=== PATIENT | female | born 1965 | race Caucasian/White ===

== ENCOUNTER → 2017-08-17 | Outpatient (CLI) | payer BC ==
[2016-07-23 12:52] VITALS: BP 125/67
[~2017-08-17] MED LIST: DOXY25TA42 PO; IBUP200C9 PO; LISI-338 PO
--- NOTE | 2017-08-17 13:37 | KCIC ---
MRI Lumbar Spine without contrast History: Low back pain with left radiculopathy, pain for a few weeks starting after moving furniture Technique: Multiplanar, multi sequential noncontrast MR imaging was performed of the lumbar spine. Contrast: None Comparison: None Findings: There is mild motion degradation. Lumbar vertebral body stature and AP alignment are adequate. There is moderate degenerative disc disease greater on the right at L4-5, minimally at L5-S1. Conus terminates normally at the superior aspect of L1. Trace L4-5 endplate edema is likely reactive/degenerative in etiology. There is very mild S-shaped curvature. L2-L3: Spinal canal and neural foramina are adequate. There is mild facet hypertrophic change. L3-L4: There is moderate facet degenerative change and mild buckling of the ligamentum flavum. Neural foramina are adequate. Spinal canal is overall adequate. L4-L5: There is moderate facet hypertrophic change. There is a minimal disc osteophyte complex. There is [id number] right and mild left lateral recess stenosis. There is [id number] narrowing of the right neural foramen from posteriorly by facet, left neural foramen adequate. L5-S1: There is moderate to severe right and moderate left facet degenerative change. There is a shallow posterior bulge/protrusion, no significant impingement descending S1 nerve roots. Spinal canal is overall adequate. Neural foramina are adequate. Impression: 1. There is mild to moderate narrowing of the right L4-5 neural foramen. There is also mild to moderate right and mild left lateral recess stenosis at L4-5. 2. There is moderate degenerative disc disease at L4-5, minimally at L5-S1. Electronically signed by: Chase Cook MD (08/17/2017 1:33 PM) [id number]
== END | disposition home or self-care (01) ==
LOC: KCIC MRI 12:47
PROVIDERS: ATTEND Physician Assistant
DX: M51.16 Intervertebral disc disorders with radiculopathy, lumbar region (principal); M51.37 Other intervertebral disc degeneration, lumbosacral region
CPT/HCPCS: 72148

== ENCOUNTER 2021-08-27 06:04 | Day surgery (SDC) | payer BC ==
[~2021-08-27] VITALS: Ht 180.3 cm; Wt 95.9 kg
[~2021-08-27 06:04] MED LIST changes: +HYDROmorphone 2 MG/ML VIAL IVP PRN; +IV RINGERS,LACTATED 1000ML 1,000 ML IV SCH; -LISI-338 PO; +LISI5TAB15 PO; +PROCHLORPERAZINE 10 MG/2 ML VIAL. IVP PRN; +fentaNYL PF VIAL 100 MCG/2 ML VIAL IVP PRN
[2021-08-27 06:45] VITALS: BP 143/80
[2021-08-27] MEDS ORDERED: BUPIVACAINE MPF 0.25% 30 ML VIAL. ONE (07:02)
[2021-08-27] MEDS ORDERED: SEVOFLURANE > 120 MINUTES. IH ONE (07:15)
[2021-08-27] MEDS ORDERED: SUCCINYLCHOLINE 200 MG/10 ML VIAL. ONE (07:15)
[2021-08-27] MEDS ORDERED: DEXAMETHASONE SOD PHOS 4 MG/ML VIAL ONE (07:15)
[2021-08-27] MEDS ORDERED: ROCURONIUM 50 MG/5 ML VIAL. ONE ×2 (07:15→10:10)
[2021-08-27] MEDS ORDERED: ONDANSETRON PF 4 MG/2 ML VIAL. ONE (07:15)
[2021-08-27] MEDS ORDERED: LIDOCAINE 2% PF 5 ML VIAL. ONE (07:15)
[2021-08-27] MEDS ORDERED: MIDAZOLAM HCL/PF 2 MG/2 ML VIAL. ONE (07:16)
[2021-08-27] MEDS ORDERED: fentaNYL PF VIAL 100 MCG/2 ML VIAL ONE ×2 (07:16→13:11)
[2021-08-27] MEDS ORDERED: KETAMINE HCL IN NACL, ISO-OSM 50 MG/5 ML SYRINGE ONE (07:27)
--- NOTE | 2021-08-27 07:51 | PDOC1 ---
History and Physical Date of Service: DOS: DATE: 08/27/21 TIME: 07:44 Chief Complaint: Chief Complain: Left ankle fracture History of Present Illness: HPI: 56-year-old female with past medical history of previous left ankle fusion and gastric sleeve surgery, who presents to the outpatient surgery for left ankle fixation. About a week ago patient was at home when she tripped over her kowalski retriever. Patient currently does not experience any pain at this time. Currently denies fevers, cough, chest pain, nausea vomiting, abdominal pain, dysuria or hematuria. Past Medical/Surgical History: PMH/PSH: No significant past medical history. Past surgical history of ankle fusion and gastric sleeve Allergies: Allergies: Coded Allergies: No Known Drug Allergies (Unverified , 08/27/21) Family History: Family History: Diabetes and hypertension in the family Social History: Social History: About a pack per day Current Medications: Current Medications Current Medications Fentanyl Citrate (Fentanyl 2ml Vial) 25 mcg PRN Q5MIN PRN IVP MILD PAIN 1-3; Start 08/27/21 at 06:00; Stop 08/28/21 at 05:59 Fentanyl Citrate (Fentanyl 2ml Vial) 50 mcg PRN Q5MIN PRN IVP MODERATE PAIN 4- 6; Start 08/27/21 at 06:00; Stop 08/28/21 at 05:59 Morphine Sulfate (Morphine Sulfate) 1 mg PRN Q10MIN PRN IVP SEVERE PAIN 7-10; Start 08/27/21 at 06:00; Stop 08/28/21 at 05:59 Ringer's Solution 1,000 ml @ 30 mls/hr Q24H IV Last administered on 08/27/21at 06:53; Start 08/27/21 at 06:00; Stop 08/27/21 at 17:59 Hydromorphone HCl (Dilaudid) 0.5 mg PRN Q10MIN PRN IVP SEVERE PAIN 7-10, 2nd CHOICE; Start 08/27/21 at 06:00; Stop 08/28/21 at 05:59 Prochlorperazine Edisylate (Compazine) 5 mg PACU PRN PRN IVP NAUSEA, MRX1; Start 08/27/21 at 06:00; Stop 08/28/21 at 05:59 Cefazolin Sodium/ Dextrose 50 ml @ 100 mls/hr 1X PREOP PRN IV PRIOR TO PROCEDURE; Start 08/27/21 at 06:00; Stop 08/27/21 at 18:00 Bupivacaine HCl (Sensorcaine Mpf 0.25%) 30 ml STK-MED ONCE .ROUTE ; Start 08/27/21 at 07:02; Stop 08/27/21 at 07:03; Status DC Dexamethasone Sodium Phosphate (Decadron) 4 mg STK-MED ONCE .ROUTE ; Start 08/27/21 at 07:15; Stop 08/27/21 at 07:16; Status DC Lidocaine HCl (Lidocaine Pf 2% Vial) 5 ml STK-MED ONCE .ROUTE ; Start 08/27/21 at 07:15; Stop 08/27/21 at 07:16; Status DC Ondansetron HCl (Zofran) 4 mg STK-MED ONCE .ROUTE ; Start 08/27/21 at 07:15; Stop 08/27/21 at 07:16; Status DC Sevoflurane (Ultane) 90 ml STK-MED ONCE IH ; Start 08/27/21 at 07:15; Stop 08/27/21 at 07:16; Status DC Succinylcholine Chloride (Anectine) 200 mg STK-MED ONCE .ROUTE ; Start 08/27/21 at 07:15; Stop 08/27/21 at 07:16; Status DC Rocuronium [place] (Zemuron) 50 mg STK-MED ONCE .ROUTE ; Start 08/27/21 at 07:15; Stop 08/27/21 at 07:16; Status DC Fentanyl Citrate (Fentanyl 2ml Vial) 100 mcg STK-MED ONCE .ROUTE ; Start 08/27/21 at 07:16; Stop 08/27/21 at 07:16; Status DC Midazolam HCl (Versed) 2 mg STK-MED ONCE .ROUTE ; Start 08/27/21 at 07:16; Stop 08/27/21 at 07:16; Status DC Ketamine HCl (Ketamine) 50 mg STK-MED ONCE .ROUTE ; Start 08/27/21 at 07:27; Stop 08/27/21 at 07:27; Status DC Active Scripts Active Reported Sleep Aid (Doxylamine Succinate) 25 Mg Tablet 25 Mg PO HS Lisinopril 5 Mg Tablet 1 Tab PO DAILY Advil (Ibuprofen) 200 Mg Capsule 200 Mg PO PRN PRN ROS: Review of Systems Review of System REVIEW OF SYSTEMS: GENERAL: Denies weakness SKIN: No bruising, hair changes or rashes. EYES: No blurred, double or loss of vision. NOSE AND THROAT: No history of nosebleeds, hoarseness or sore throat. HEART: No history of palpitations, chest pain or shortness of breath on exertion. LUNGS: Denies cough, hemoptysis, wheezing or shortness of breath. GASTROINTESTINAL: Denies changes in appetite, nausea, vomiting, diarrhea or constipation. GENITOURINARY: No history of frequency, urgency, hesitancy or nocturia. NEUROLOGIC: Denies history of numbness, tingling, or tremor. PSYCHIATRIC: No history of panic, anxiety or depression. ENDOCRINE: No history of heat or cold intolerance, polyuria or polydipsia. EXTREMITIES: Denies joint pain, pain on walking or stiffness. Physical Exam: Vital Signs: Vital Signs Date Time Temp Pulse Resp B/P (MAP) Pulse Ox O2 Delivery O2 Flow Rate FiO2 08/27/21 06:49 97.5 92 18 143/80 94 Room Air 97.5 Physcial Exam: General: Well developed, well nourished, no acute distress, well appearing HEENT: Pupils equally round and reactive to light, EOMI, no discharge, normal conjunctiva Neck: Supple, no nuchal rigidity, no JVD, trachea midline, no tenderness Cardiac: RRR, no murmurs, no gallops, no rubs Chest/Lungs: CTAB, no wheeze, no rhonchi, no crackles Abdomen: soft, non-distended, no guarding, no peritoneal signs, non-tender Back: No tenderness Extremities: no edema, pulses intact, non-tender,capillary refill <3 sec bilateral upper and lower extremities, left ankle cast intact. Sensation is present. Neuro: Alert and oriented x 4, no focal deficits, normal speech Labs: Labs: No recent labs to review Images: Images No recent images to review Assessment/Plan Assessment/Plan Closed trimalleolar fracture of the left ankle History tobacco use Patient on-call to surgery with Dr. Hauser for ORIF of the left ankle. Patient's Ellis score is 0.1% for orthopedic nonvascular extremity surgery. Dispositionplan for discharge from PACU once patient is stable. Please call hospitalist service for any questions or if admission to the hospital as needed. Justifications for Admission Other Justification SHAKILA MORENO MD Aug 27, 2021 07:51
[2021-08-27] MEDS ORDERED: PROPOFOL 10 MG/ML (20ML) VIAL. IV ONE (08:23)
[2021-08-27] MEDS ORDERED: fentaNYL PF VIAL 250 MCG/5 ML VIAL ONE (08:49)
[2021-08-27] MEDS ORDERED: LABETALOL 20 MG/4 ML DISP.SYRIN. IVP ONE (08:53)
[2021-08-27] MEDS ORDERED: ESMOLOL 100 MG/10 ML VIAL. IVP ONE (08:59)
[2021-08-27] MEDS ORDERED: VANCOMYCIN 1 GM VIAL. ONE (10:28)
[2021-08-27] MEDS ORDERED: NEOSTIGMINE METHYLSULFATE 5 MG/5 ML SYRINGE. ONE (11:36)
[2021-08-27] MEDS ORDERED: GLYCOPYRROLATE 1 MG/5 ML VIAL. ONE (11:36)
[2021-08-27] MEDS ORDERED: DEXTROSE 50% 25 GM / 50ML DISP.SYRIN. IV PRN (12:45)
[2021-08-27] MEDS ORDERED: ACETAMINOPHEN 325 MG TABLET. PO ONE (12:45)
[2021-08-27] MEDS ORDERED: POLYETHYLENE GLYCOL 3350 17 GM PACKET. PO PRN (12:45)
[2021-08-27] MEDS ORDERED: ONDANSETRON PF 4 MG/2 ML VIAL. IVP PRN (12:45)
[2021-08-27] MEDS ORDERED: oxyCODONE/APAP 5/325 1 TAB TABLET PO ONE (12:45)
[2021-08-27] MEDS ORDERED: GABAPENTIN 100 MG CAPSULE. PO ONE (12:45)
--- NOTE | 2021-08-27 12:51 | PDOC4 ---
OPERATIVE NOTE Date: Date: Aug 27, 2021 Pre-Op Diagnosis: Left trimalleolar ankle fracture Post-Op Diagnosis: Same as above Procedure Performed: Left ankle closed trimalleolar fracture open reduction and internal fixation with syndesmotic joint stabilization, hardware removal on the fibula Surgeon: John Metcalf DPM Anesthesia Type: General Blood Loss: 20 cc Findings: Left ankle trimalleolar fracture complicated with a stress/comminuted fracture to the shaft of the fibula with a residual intramedullary screw from prior ankle fracture, Todd 2B fracture with a -punch to the Volkman's fracture laterally. There is comminution to the medial malleolus fracture as well with a primary fracture line transverse extending into the ankle. The fibular fracture comminution is not amenable to interfragmentary screw. To further facilitate the construct and stabilization of the fibular distal fragment, the decision was made to put into the syndesmotic screws on the distal fibula. In addition, intraoperative syndesmotic stress test was grossly stable however there was a subtle talar tilt concerning for syndesmotic joint instability. The syndesmotic screws will also help with the talar mortise alignment. Complications: None Operative Note: Under mild sedation, patient was brought to the operating room. A time out was performed, to confirm patient's identity, location of surgery, and procedure. After induction of general anesthesia and intravenous antibiotics, a well-padded pneumatic thigh tourniquet was placed onto left lower extremity. Patient was then transferred to the operating table in a prone position with all the osseous prominences well-padded. The left lower extremity was scrubbed, prepped and draped in the usual sterile manner. Under intraoperative x-ray guidance, the distal medial and lateral malleolar fracture apices, center axial fibula were identified and marked for preoperative incision and surgical planning. An Esmarch bandage was utilized to exsanguinate the lower leg, and the tourniquet was inflated to 250mmHg. Intraoperative finding remarked mild to moderate ecchymotic changes without fracture blisters to the medial aspect of the Achilles tendon, not over but close to the provisional medial posterior skin incision. Because of the comminution, large fragment to the Todd 2B fracture, the decision was made to reduce and fix the distal posterior tibial fractures with 2 window incisions, both medial lateral to the Achilles tendon with care to bypass and avoid the attenuated tissue. The attention was first directed to the distal fibula where a 1.5 centimeter vertical linear incision was made and carried deep to the periosteum layer with a combination of sharp and blunt dissection with care to protect neurovascular bundle and peroneal tendons. The screw head was encountered following rongeur dissection at the distal fibula. The screw was removed in total without any breakage or complication. The attention was directed to the medial posterior tibia where a curvilinear incision was made between the medial margin of the Achilles tendon and the posterior margin of the tibia traversing distally to the central distal medial malleolus. The incision was carried deep with blunt dissection and a wet Ray- Slim. Deep fascia was encountered and Metzenbaum scissors were used to release the superficial retinaculum and also the tendon sheath of PT in line with the incision site. The PT tendon was mobilized anteriorly, and a window was created between the PT tendon and FDL with care to protect the neurovascular bundle just posterior to the FDL. Care was also taken to preserve ankle capsule and preserve the PITFL laterally to allow ligamentolaxity reduction. Then the fracture site was exposed and visualized with a periosteal elevator. The Todd 2B fragments extended from the posterior proximal tibia to the anterior medial central aspect of the distal tibial malleolus. There was also comminution to the proximal margin of the Todd fracture. To facilitate the Volkman's fracture reduction, a posterior lateral incision was made between the lateral margin of Achilles tendon and posterior margin of the fibula. Incision was at least 7 cm away from the prior medial posterior incision for healthy skin island the incision was carried deep using a combination of sharp and blunt dissection with care to protect all the neurovascular bundles. The peroneal retinaculum posteriorly was incised to better mobilize the peroneal tendons out of the posterior fibula and posterior syndesmotic joint and membrane. Peroneal tendon sheath was preserved. The Volkman fracture was visualized and freed from the proximal periosteum. Care was taken to preserve the PITFL and distal ankle capsule. At this time, the punch fragment was identified and removed. It was measured approximately 2 mm x 3 mm. Due to the size and nature of comminution at the distal posterior tibial fractures, the decision was made to excise the punch as opposed to open and reduce the fragment. Both Todd 2B fracture and Volkman fracture were irrigated with copious saline solution and the hematoma was evacuated for osseous apposition. Reduction was achieved with a combination of a ball spike, sharp reduction clamp. Adequate articular surface adventism and clinical posterior cortical read confirmed adequate reduction. Then, An antiglide, anatomical 7 hole plate was placed over the Todd 2B fracture to capture and stabilize the distal fragment. A 3.5mm trick screw was placed followed by proximal screw to conform the plate onto the cortex. Then the distal plate was affixed with 3.5 mm nonlocking cortical screws. Intraoperative x-ray remarked adequate posterior tibial fracture reduction, adequate and satisfactory hardware placement and length. A straight 4-hole plate was placed over the Volkman's fracture utilizing antiglide concept. Following AO standard technique, the fracture was reduced and maintained with 3.5 mm cortical screws. Adequate fracture reduction, and adventism of the articular surface was remarked with intraoperative x-ray. Copious saline s olution was used to irrigate the posterior distal fibula. Then, the attention was directed to the anterior medial malleolus where we noted comminuted fracture to the distal anterior colliculus with a primary fracture line extending laterally at the ankle joint level. The periosteum was freed from the fracture site to help with osseous apposition. Reduction was achieved with a sharp reduction clamp. Then a medial hook plate was applied to affix the fracture fragment using standard AO technique. Intraoperative x-ray remarked adequate medial malleoli or cortical reduction with restored ankle mortise alignment. Due to the nature of the distal medial malleolear comminution, the decision was made against putting a homerun screw at the distal plate with the c oncern of fracture displacement. Hardware was not prominent through soft tissue. Adequate saline solution irrigation was performed to the medial incision again. The attention was redirected to the posterior lateral incision. The peroneal tendons were posteriorly and laterally mobilized to expose the posterior lateral aspect of the fibula. Intraoperatively, we noted significant comminution to the distal fibular shaft just proximal to the intramedullary screw. The periosteum was freed from the fracture site. Due to the loss of fibular height and challenge with placing the anterior fragment screw, a push pull technique was applied to restore the fibular length. The plate was affixed to the distal fragment of the fibula and fracture site distraction was achieved with a 3.5 screw proximally outside of the plate. When the fibular was restored to length, then a K wire was used to affix the reduction. And then proximal plate holes were filled with 3.5mm locking and nonlocking screws using standard AO techni ques. Intraoperative x-ray remarked adequate adventism of the fibular length and fracture apposition. Then the K wire was removed and replaced with another 3.5 mm locking screw. At this time, tourniquet was at 2 hours, then decision was made to deflate the tourniquet. Hemostasis was achieved with gauze and Coban compression. Afterwards, there was no pulsating bleeding at the surgical sites. Then the decision was made to keep the tourniquet deflated and finished the surgery without the tourniquet. Intraoperative syndesmotic stress test was performed which noted stable syndesmotic joint was very subtle and questionable valgus talar tilt. Considering the inability and challenge with anterior fragment screw to the distal fibula, and this new subtle change to the syndesmotic joint, the decision was made to replace the distal 2 fibular screws and replace with 2 syndesmotic screws. Then with the guidance of intraoperative x-ray, two 4.2 mm screws were placed across the medial distal malleolus for a Quadra cortical purchase. At this time, the stress test was negative for any talar tilt or instability. Passive ankle dorsiflexion noted at 0 degrees and neutral. Stress test at the distal fibula was also stable without any instability and absence of the inter- fragmentary screw. The wounds were copiously irrigated with normal saline. 1 g of vancomycin powder was applied to the surgical site to prevent postoperative infection given her attenuated skin status, duration of the surgery and number of the incisions. The medial retinaculum and PT tendon sheath, peroneal retinaculum were repaired with 3-0 Vicryl. Care was taken not to violate the neurovascular bundle both medially and laterally. All the surgical sites were closed with 4 Monocryl subcu. Due to the attenuation of the skin condition, the skin was closed with jose c. 10 cc of quarter percent Marcaine was infiltrated into the surgical site. The surgical sites were dressed with Betadine soaked Adaptic, sterile 4 x 4 gauzes. A well padded posterior splint with added sugar tong was applied to left lower extremity while the ankle with held dorsiflexed and inverted. Adequate digital perfusion was noted to the left lower extremity. Patient tolerated anesthesia, procedure well with vascular status intact to the surgical lower extremity. Patient was then transferred to PACU for continued recovery. Pending 3 view of the surgical ankle x-ray. Pending possible popliteal/saphenous nerve block. JOHN METCALF DPM Aug 27, 2021 12:51
[2021-08-27] MEDS ORDERED: ROPIVacaine 0.5% PF 20 ML VIAL. ONE (12:52)
[2021-08-27] MEDS ORDERED: SENNOSIDES/DOCUSATE 8.6/50MG TABLET. PO SCH (13:00)
[2021-08-27] MEDS ORDERED: MORPHINE SULFATE 2 MG/ML INJ. ONE (13:11)
[2021-08-27] MEDS: MORPHINE SULFATE 2 MG/ML INJ. IVP PRN ×2 (13:15→13:26)
[2021-08-27] MEDS ORDERED: GABA-585 PO (13:42)
[2021-08-27] MEDS ORDERED: ACET500T68 PO (13:43)
[2021-08-27] MEDS ORDERED: IBUP-1007 PO (13:44)
[2021-08-27] MEDS ORDERED: ASPI-630 PO (13:45)
[2021-08-27] MEDS ORDERED: HYDR-2761 PO (13:48)
[2021-08-27] MEDS ORDERED: TRAM50TA PO (13:57)
[2021-08-27 14:15] VITALS: BP 132/72
[2021-08-27] MEDS ORDERED: POLYVINYL ALCOHOL 1.4% OPHTH SOLUTION 15ML BOTTLE. OU PRN (14:45)
--- NOTE | 2021-08-27 16:19 | RAD ---
XR EXAM OF ANKLE_LEFT 3V History: Reason: pacu, post-op lt ankle / Spl. Instructions: / History: Technique: 3 views left ankle. Comparison: August 21, 2021 Findings: Interval internal fixation medial malleolus, distal fibular and posterior malleoli are fractures. Syn desmotic screws noted. Improved alignment of the ankle mortise. Removal of previously seen lateral ma lleolus fixation screw. Overlying cast degrades evaluation of fine bony detail. Plantar calcaneal spu r. Impression: 1. Interval internal fixation trimalleolar ankle fractures. Improved alignment. Electronically signed by: Israel Browning DO (08/27/2021 4:16 PM) [id number]
== END 2021-08-27 15:15 | disposition home or self-care (01) ==
LOC: SURG 06:04
PROVIDERS: ATTEND Podiatrist
DX: S82.852A Displaced trimalleolar fracture of left lower leg, initial encounter for closed fracture (principal); I10 Essential (primary) hypertension; J43.9 Emphysema, unspecified; E66.9 Obesity, unspecified; M19.90 Unspecified osteoarthritis, unspecified site; Z90.710 Acquired absence of both cervix and uterus; Z98.51 Tubal ligation status; Z98.890 Other specified postprocedural states; Z87.891 Personal history of nicotine dependence; Z79.82 Long term (current) use of aspirin; Z79.899 Other long term (current) drug therapy; X58.XXXA Exposure to other specified factors, initial encounter; Y93.89 Activity, other specified; Y92.89 Other specified places as the place of occurrence of the external cause; Y99.8 Other external cause status
CPT/HCPCS: 20680; 27822; 36415; 73610; 82306; A4209; A4930; A6223; A6253; A6257; A6402; A6449; A6450; C1713; J0690; J1100; J2250; J2270; J2405; J2704; J2710; J2795; J3010; J3370; J3490; 76000; A4222; A4223; A6454; J0330